=== PATIENT | male | born 1995 | race Caucasian/White ===

== ENCOUNTER 2021-04-17 03:09 | Emergency (ER) | payer OTHER ==
[~2021-04-17] VITALS: Ht 170.2 cm; Wt 65.0 kg
[2021-04-17 03:35] VITALS: BP 102/67
--- NOTE | 2021-04-17 03:48 | NUR ---
ASSUMED CARE OF PATIENT. PT COOPERATIVE. PLACED IN BED IN HALLWAY ALL ROOMS FULL AND NEEDED TO GET EMS BACK TO RUN CALLS. EMS CALLED FATHER IN [facility] WHO IS WORKING ON GETTING HIM A RIDE BACK TO HIS FRIENDS HOUSE.
--- NOTE | 2021-04-17 05:47 | NUR ---
FRIEND ELIEZER HERE TO PUBLICITY AGENT PATIENT. AMBULATORY WITH STEADY GAIT TO DC DESK.
== END 2021-04-17 05:50 | disposition home or self-care (01) ==
LOC: ED 05:40
DX: F10.129 Alcohol abuse with intoxication, unspecified (principal); Z72.9 Problem related to lifestyle, unspecified; Y90.0 Blood alcohol level of less than 20 mg/100 ml
CPT/HCPCS: 99283